=== PATIENT | female | born 1980 ===

== ENCOUNTER → 2019-02-02 22:03 | Outpatient (REF) | payer OTHER, MEDICAID, SELFPAY ==
[2019-02-03 00:19] LABS: Vitamin D 25 Hydroxy (D3) 27.5 ng/mL (30.0-100.0)
[2019-02-06 19:36] LABS: Zinc 101 mcg/dL (60-130)
== END ==
LOC: LAB 22:03
PROVIDERS: Visit Provider Naturopath
DX: J32.9 Chronic sinusitis, unspecified (principal); E55.9 Vitamin D deficiency, unspecified; R58 Hemorrhage, not elsewhere classified
CPT/HCPCS: 82306; 84630

== ENCOUNTER → 2019-02-04 23:13 | Outpatient (REF) | payer OTHER, MEDICAID, SELFPAY | LOC: LAB 23:13 | PROVIDERS: Visit Provider Naturopath | DX: J32.0 Chronic maxillary sinusitis (principal) | CPT/HCPCS: 36415 ==

== ENCOUNTER → 2019-03-31 22:11 | Outpatient (ROUT) | payer OTHER, MEDICAID, SELFPAY ==
[2019-04-01 04:56] LABS: Free T3, Triiodothyronine Free 4.44 pg/mL (2.77-5.27); Free T4, Direct Thyroxine 0.98 ng/dL (0.78-2.19)
[2019-04-01 05:10] LABS: Thyroid Stimulating Hormone 0.66 uIU/mL (0.47-4.68)
[2019-04-03 15:59] LABS: Dehydroepiandrosterone Sulfate 65 mcg/dL (23-266)
[2019-04-07 21:44] LABS: Methylmalonic Acid 204 nmol/L (87-318)
== END ==
PROVIDERS: Visit Provider Naturopath
DX: R79.89 Other specified abnormal findings of blood chemistry (principal); E03.9 Hypothyroidism, unspecified; E54 Ascorbic acid deficiency
CPT/HCPCS: 36415; 82180; 82627; 83921; 84439; 84443; 84481

== ENCOUNTER → 2019-04-15 21:22 | Outpatient (ROUT) | payer OTHER, MEDICAID, SELFPAY ==
[2019-04-15 23:16] LABS: Progesterone, Total 2.57 ng/mL
[2019-04-15 23:32] LABS: Estradiol, Total 34.3 pg/mL
== END ==
PROVIDERS: Visit Provider Naturopath
DX: G43.829 Menstrual migraine, not intractable, without status migrainosus (principal); R79.89 Other specified abnormal findings of blood chemistry
CPT/HCPCS: 82670; 84144